=== PATIENT | female | born 1965 | race Caucasian/White ===

== ENCOUNTER → 2018-06-08 15:24 | Outpatient (CLI) | payer OTHER, SELFPAY ==
--- NOTE | 2018-06-08 15:34 | MRI_ITS ---
STUDY: MRI LUMBAR SPINE WITH AND WITHOUT CONTRAST REASON FOR EXAM: Female, 53 years old. BACK PAIN, left SCIATICA prev surgery 12/2016 lumbar with no improvement, pain low back and left leg x 3 year TECHNIQUE: Standardized fat and water weighted pulse sequences were obtained in the sagittal and axial planes. 8 ml of Gadavist contrast material was administered for the contrast portion of the examination. COMPARISON: None FINDINGS: T12-L1: Normal endplates. Normal disc height, hydration and morphology. Normal bilateral facet joints. Normal central canal and bilateral lateral recesses. Normal bilateral intervertebral neural foramina. Normal lumbar lordosis. There is no substantial scoliosis. Normal conus medullaris that terminates at the L1 level. L1-2: Endplate spondylosis. Decreased disc height and small circumferential disc bulge. Degenerative changes of the bilateral facet joints. Mild narrowing of the central canal. Normal bilateral intervertebral neural foramina. L2-3: Endplate spondylosis. Decreased disc height and small circumferential disc bulge. Degenerative changes of the bilateral facet joints. Mild narrowing of the central canal. Normal bilateral intervertebral neural foramina. L3-4: Endplate spondylosis. Decreased disc height and small circumferential disc bulge. Degenerative changes of the bilateral facet joints. Mild narrowing of the central canal and bilateral intervertebral neural foramina. L4-5: Endplate spondylosis. Decreased disc height and small circumferential disc bulge. Degenerative changes of the bilateral facet joints. Mild narrowing of the central canal. Mild right and moderate left intervertebral neural foramina narrowing. Left laminectomy. Epidural scarring on the left side. L5-S1: Endplate spondylosis. Decreased disc height and small circumferential disc bulge. Degenerative changes of the bilateral facet joints. Mild narrowing of the central canal. Mild right and moderate left intervertebral neural foramina narrowing. Left laminectomy. Epidural scarring on the left side. Normal visualized sacral ala. Normal visualized paraspinous soft tissue structures. MRI/Spine Lumbar W/WO Contrast IMPRESSION: Multilevel degenerative changes more prominent at L4-5 and L5-S1 on the left side, as described above. Epidural scarring and status post left laminectomy at L4-5 and L5-S1. Electronically Signed: Naman Campos MD at 7:14 EDT Tel , Service support ,
== END ==
DX: M54.16 Radiculopathy, lumbar region (principal)
CPT/HCPCS: 72158; A9585

== ENCOUNTER → 2020-04-06 13:45 | Outpatient (CLI) | payer OTHER, SELFPAY ==
--- NOTE | 2020-04-06 13:49 | RAD_ITS ---
STUDY: X-RAY - RIGHT HAND, ATTENTION INDEX FINGER REASON FOR EXAM: Female, 54 years old. SMASHED INDEX FINGER TECHNIQUE: 3 view(s) of the finger were obtained. COMPARISON: None. FINDINGS: Normal metacarpal head. Normal metacarpophalangeal joint. Normal proximal phalanx. Normal middle phalanx. Normal distal phalanx. Normal proximal interphalangeal joint. Normal distal interphalangeal joint. Soft tissue laceration overlying the distal phalanx of the index finger. RAD/Finger(s) Min 2 Views IMPRESSION: Soft tissue laceration overlying the distal phalanx of the index finger. Electronically Signed: Solis Fontaine, at 14:21 EDT , Service support ,
== END ==
PROVIDERS: Referring Provider Physician Assistant; Visit Provider Physician Assistant
DX: S67.190A Crushing injury of right index finger, initial encounter (principal)
CPT/HCPCS: 73140

== ENCOUNTER → 2020-05-27 08:50 | Outpatient (CLI) | payer OTHER, SELFPAY ==
[2020-05-27 08:17] VITALS: BMI 27.8
--- NOTE | 2020-05-27 08:53 | RAD_ITS ---
STUDY: X-RAY - RIGHT HAND, ATTENTION 2 FINGER REASON FOR EXAM: Female, 55 years old. LACERATION 1 MONTH AGO, CONTINUED PAIN AND SWELLING TECHNIQUE: 3 view(s) of the finger were obtained. COMPARISON: None. FINDINGS: Normal metacarpal head. Normal metacarpophalangeal joint. Normal proximal phalanx. Normal middle phalanx. Normal distal phalanx. Normal proximal interphalangeal joint. Normal distal interphalangeal joint. RAD/Finger(s) Min 2 Views IMPRESSION: Normal x-ray examination of the finger. Electronically Signed: Melecio Parks MD at 9:17 EDT Tel , Service support ,
== END ==
PROVIDERS: Referring Provider Physician Assistant; Visit Provider Physician Assistant
DX: S61.310A Laceration without foreign body of right index finger with damage to nail, initial encounter (principal)
CPT/HCPCS: 73140

== ENCOUNTER → 2020-12-29 16:44 | Outpatient (CLI) | payer BC, SELFPAY ==
[2020-06-21 15:21] VITALS: BMI 27.8
--- NOTE | 2020-12-29 16:59 | RAD_ITS ---
INDICATION: BACK PAIN EXAMINATION/TECHNIQUE: X-RAY - XR Spine Lumbar Min 4 Views COMPARISON: None. FINDINGS: VERTEBRAE: Preserved vertebral body height. No fracture. No spondylolisthesis. Slight left convex curvature of the mid lumbar spine. Exaggerated lordosis. Moderate multilevel facet arthropathy. DISCS: Moderate multilevel disc space narrowing and osteophytosis, most severe at L5-S1. INCLUDED ABDOMEN: Included bowel gas pattern is non-obstructive. RAD/L/S Spine Min 4 Views IMPRESSION: No acute abnormalities. Moderate multilevel lumbar spondylosis and facet arthropathy. Electronically Signed: Rc Metcalf MD at 16:23 EDT Tel , Service support ,
[2020-12-29 17:19] LABS: Amphetamine Urine VISTA NEGATIVE (<1000 ng/mL); Barbiturate Urine VISTA NEGATIVE (< 200 ng/mL); Benzodiazepine Urine VISTA NEGATIVE (< 200 ng/mL); Cocaine Urine VISTA NEGATIVE (< 300 ng/mL); Ecstacy Urine VISTA NEGATIVE (< 500 ng/mL); Methadone Urine VISTA NEGATIVE (< 300 ng/mL); PCP Urine VISTA NEGATIVE (< 25 ng/mL); THC Urine VISTA NEGATIVE (< 50 ng/mL); Vista UDS pH Range 6
== END ==
PROVIDERS: Anesthesiology Pain Medicine; PCP Nurse Practitioner Family; Referring Provider Anesthesiology; Visit Provider Anesthesiology
DX: M54.5 Low back pain (principal); F11.20 Opioid dependence, uncomplicated
CPT/HCPCS: 72110; 80307